=== PATIENT | male | born 1940 | race African-American/Black ===

== ENCOUNTER 2016-07-14 09:00 | Inpatient (IN) | payer MEDICARE ==
[2016-07-13 17:36] LABS: HEMATOCRIT 39.3 % (38.0-50.0); HEMOGLOBIN 13.1 gm/dL (13.0-16.0); MEAN CELL VOLUME 88.5 FL (83-96); MEAN CORPUSCULAR HEMOGLOBIN 29.5 PG (28-34); MEAN CORPUSCULAR HGB CONC 33.3 g/dL (30-36); RED BLOOD COUNT 4.44 X10e (3.90-5.60); RED CELL DISTRIBUTION WIDTH 15.7 % (11.0-15.5); WHITE BLOOD COUNT 4.5 X10e3 (4.0-10.5)
[2016-07-13 18:04] LABS: ALBUMIN SERUM 4.2 g/dL (3.5-5.0); ALKALINE PHOSPHATASE 93 U/L (32-92); ALT (SGPT) 23 U/L (10-40); AST (SGOT) 31 U/L (10-42); BILIRUBIN,TOTAL 1.3 mg/dL (0.2-2.0); BLOOD UREA NITROGEN 14 mg/dL (9-23); BUN/CREATININE RATIO 11.66; CALCIUM SERUM 9.1 mg/dL (8.4-10.2); CARBON DIOXIDE 27 mmol/L (22-31); CHLORIDE 104 mmol/L (100-111); CREATININE SERUM 1.2 mg/dL (0.6-1.4); GLOM FILT RATE Estimated ABOVE60 mL/min (>60); GLUCOSE FASTING 78 mg/dL (70-110); MAGNESIUM 1.8 mg/dL (1.6-3.0); PHOSPHOROUS 3.3 mg/dL (2.5-4.6); POTASSIUM 4.2 mmol/L (3.5-5.1); PROTEIN TOTAL SERUM 8.5 g/dL (6.0-8.3); SODIUM 136 mmol/L (135-145)
--- NOTE | ~2016-07-14 | CT2 ---
[facility] A Service of [facility] & [facility] / [facility] RADIOLOGY TEXT RESULTS PATIENT: TANESHA BOWIE JR LOCATION: A - : 42 UNIT #: [id number] AGE: [address]: Terrell Wright MD SEX: M ORDER DR: [id number] [place] [id number] [facility]. [place], [place] [address] [id number] MR#: [id number] Acc #: [id number] NAME: TANESHA BOWIE JR : 1940 SEX: M STUDY DATE/TIME: 07/13/2016 21:49 UNIT: A ROOM: 217 STUDY DESCRIPTION: CT Abd and Pelv W Cont Attending Physician: Terrell Wright M.D. Ordering Physician: Terrell Wright M.D. Primary Care Physician: Anthony Joseph M.D. MEDICAL IMAGING REPORT This report is preliminary unless electronic signature is present EXAM CT abdomen and pelvis with contrast DATE 07/13/2016 HISTORY Colonoscopy this morning. Tumor found on colonoscopy. Left lower abdominal pain for 2 weeks. Evaluate for metastatic cancer. COMPARISON CT abdomen and pelvis with contrast 05/04/2016. PROCEDURE 5 mm axial images through the abdomen and pelvis after intravenous and enteric contrast administration. This CT exam was performed with one or more of the following radiation dose reduction techniques: Automatic exposure control, adjustment of mA and/or kV according to patient size, and iterative reconstruction. FINDINGS ABDOMEN: What appears to be abnormal soft tissue thickening or mass lesion is seen within the proximal ascending colon, measuring about 3.0 x 3.9 cm in the axial plane. The exact craniocaudal extent cannot be accurately determined, due to the lack of oral contrast opacification more distally in the decompressed state in the remainder of the ascending colon. This is worrisome for potential colonic malignancy. Small pericolonic lymph node medial to this measures 6 mm. No evidence of high-grade large or small bowel obstruction. Diverticular changes are present within the descending and sigmoid colon, but there is no convincing CT evidence of acute diverticulitis at this time. Diverticular changes previously seen within the descending colon, [facility] A Service of [facility] & [facility] / [facility] RADIOLOGY TEXT RESULTS PATIENT: TANESHA BOWIE JR LOCATION: [place] [address]- : 42 UNIT #: [id number] AGE: [address]: Terrell Wright MD SEX: M ORDER DR: 05/04/2016. It resolved in the interval. Lung bases are clear. Heart size is within normal limits. The liver, gallbladder, spleen, pancreas, adrenals, and kidneys are within normal limits. Lung bases are free of consolidation. No aortic aneurysm. PELVIS: There is prostatic enlargement protruding into the urinary bladder with nodular protrusion into urinary bladder base. Prostate gland measures approximately 6.0 cm AP x 6.6 transverse x 7.6 cm craniocaudal. The rectum appears within normal limits. Degenerative changes in the lumbar spine, greatest at L4-5 and L5-S1, left greater than right hip arthropathy. No acute or suspicious osseous abnormalities. IMPRESSION 1. Suspected mass within the proximal ascending colon. Correlate with recent colonoscopy findings. It measures at least 3.9 x 3.9. Craniocaudal extent cannot be determined as the colon at and just distal to this level is not opacified with enteric contrast. 2. 6 mm lymph node adjacent to the proximal ascending colon may represent local viraj disease. 3. There is no evidence of more distant metastatic disease within the abdomen or pelvis. 4. Uncomplicated colonic diverticulosis. 5. Marked prostatic enlargement with nodular protrusion into the urinary bladder. 6. Moderately-advanced degenerative changes in the lumbar spine. No acute or suspicious osseous lesions. Dictated by... Josi Maher M.D. THIS IS AN ELECTRONICALLY VERIFIED REPORT Josi Maher M.D. at 07/14/2016 10:03 AM YANIRA/farzana TD: 07/14/2016 09:32 JOB #: [id number] MEDICAL IMAGING REPORT COPY
--- NOTE | ~2016-07-14 | DS ---
Unit #: [id number] #: [id number] Patient: TANESHA BOWIE JR [id number] [facility] [address] [facility]. [place], [place] [address] [id number] MR#: [id number] NAME: TANESHA BOWIE JR ROOM: 472 Age: 75 Sex: M Admission Date: 07/14/2016 : 1940 Discharge Date: 07/19/2016 Attending Physician: Terrell Wright M.D. Primary Care Physician: Anthony Joseph M.D. DISCHARGE SUMMARY HISTORY AND HOSPITAL COURSE Mr. Bowie is a 75-year-old gentleman who came in the morning of July 13 for colonoscopy. He was found to have a mass in the ascending colon that was not amenable to endoscopic resection. 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 The lesion was tattooed and he was transferred to [facility] for definitive surgery. He was taken to the operating room where he underwent a right hemicolectomy without incident. He was admitted to the hospital postoperatively and postoperatively had a generally unremarkable course. He is afebrile with stable vital signs throughout. Laboratories are generally unremarkable. Once we had return of bowel function he was quickly advanced to a regular diet. Patient is having normal bowel function. He is ambulating without difficulty. Final pathology confirmed there was no invasive malignancy but he did have high grade dysplasia. Today the patient will be discharged home in stable condition with instructions to undergo a diet as tolerated. He may ambulate ad reginald, but do no heavy lifting more than 15 pounds or any strenuous pushing, pulling or other activity. He may shower but not submerge his wound under water. Use laxative as needed. He is to call for a follow up office appointment in 10-14 days. Prescription for Hydrocodone 7.5 mg tablets was left. Med rec conciliation sheet was completed. Patient understood these instructions and will be discharged home in stable condition. Dictated by... Terrell Wright M.D. Dorothy TD: 07/20/2016 11:44 JOB #: [id number] DISCHARGE SUMMARY X Terrell Wright MD DISCHARGE SUMMARY
--- NOTE | ~2016-07-14 | OR ---
Unit #: [id number] #: [id number] Patient: TANESHA BOWIE JR [id number] [address] [place], [place] [address] [id number] I MR#: [id number] NAME: TANESHA BOWIE JR ROOM: 472 Date of Procedure: 07/14/2016 Admission Date: 07/14/2016 Surgeon: Terrell Wright M.D. : 1940 Attending Physician: Terrell Wright M.D. Primary Care Physician: Anthony Joseph M.D. OPERATIVE REPORT PREOPERATIVE DIAGNOSIS Ascending colon mass. POSTOPERATIVE DIAGNOSIS Ascending colon mass. PROCEDURES PERFORMED Exploratory laparotomy and right hemicolectomy. ANESTHESIA General endotracheal anesthesia. ESTIMATED BLOOD LOSS 30 mL. INDICATIONS FOR PROCEDURE A 75-year-old gentleman, who was found to have a mass in the ascending colon on colonoscopy. DESCRIPTION OF PROCEDURE The patient was transported from his hospital room to the operating room, and after induction of general endotracheal anesthesia, SCDs and Bella catheter were placed. Bella catheter required a Coude catheter due to benign prostatic hypertrophy. Urine was clear. After being prepped and draped in usual sterile fashion, he received IV antibiotics per SCIP protocol. The midline incision was made. We entered into the peritoneal cavity through the linea alba and identified the cecum, and the cecum and terminal ileum were mobilized and then the ascending colon was mobilized along the peritoneal reflection. The hepatic flexure was mobilized and then the terminal ileum was divided with a 75 mm NIR stapler. The proximal transverse colon was divided with a NIR stapler and then the mesentery was sequentially clamped, divided, and ligated. The specimen was removed, and then the antimesenteric border of the terminal ileum was secured to the anterior tenia of the transverse colon. Enterotomy and colotomy were made and a full length of the 75 mm NIR stapler was used to create a functional end-to-end and [id number] stapled anastomosis. The open end of the anastomosis was closed with Allis clamps and then stapled shut with a TA 60 stapler. The staple line was oversewn with 3-0 silk suture and the mesenteric defect was closed with 3-0 silk suture. Omentum was placed over the anastomosis and tacked down with 3-0 silk suture. Rest of the exploratory laparotomy was unremarkable. We irrigated and obtained hemostasis. Sponge, instrument, and needle counts were correct. Unit #: [id number] #: [id number] Patient: TANESHA BOWIE JR The fascia was closed with #1 looped PDS suture. The soft tissue was irrigated with saline followed by Betadine. The skin was closed with sterile skin angus. A sterile island dressing was placed as wound dressing. Sponges and needle counts were correct x3. The patient tolerated the procedure well and was transported to the recovery in stable condition. He will be readmitted to the hospital postoperatively and the findings and postoperative expectations were discussed with his . Dictated by... Shruthi Keene/loni TD: 07/15/2016 14:12 JOB #: [id number] OPERATIVE REPORT X Terrell Wright MD X PROCEDURE OPERATIVE NOTE
--- NOTE | ~2016-07-14 | EKG ---
PATIENT: TANESHA BOWIE UNIT #: [id number] Ventricular Rate: 58 BPM Atrial Rate: 58 BPM P-R Interval: 182 ms QRS Duration: 96 ms Q-T Interval: 400 ms QTC Calculation(Bezet): 392 ms P Tracy: 69 degrees Calculated R Tracy: 23 degrees Calculated T Tracy: 41 degrees Diagnosis Line: Sinus bradycardia Diagnosis Line: Minimal voltage criteria for LVH, may be normal Diagnosis Line: variant Diagnosis Line: Borderline ECG Diagnosis Line: No previous ECGs available Diagnosis Line: Confirmed by ИРИНА COLON MD ([id number]) on 07/14/2016 Diagnosis Line: 6:12:24 PM INTERPRETING MD: ISAIAH GOMES
[2016-07-14 06:27] LABS: HEMATOCRIT 36.7 % (38.0-50.0); HEMOGLOBIN 12.2 gm/dL (13.0-16.0); MEAN CELL VOLUME 88.6 FL (83-96); MEAN CORPUSCULAR HEMOGLOBIN 29.4 PG (28-34); MEAN CORPUSCULAR HGB CONC 33.1 g/dL (30-36); MEAN PLATELET VOLUME 8.5 FL (6.5-11.5); RED BLOOD COUNT 4.14 X10e (3.90-5.60); RED CELL DISTRIBUTION WIDTH 15.7 % (11.0-15.5); WHITE BLOOD COUNT 4.4 X10e3 (4.0-10.5)
[2016-07-14 06:57] LABS: BLOOD UREA NITROGEN 11 mg/dL (9-23); BUN/CREATININE RATIO 8.46; CARBON DIOXIDE 25 mmol/L (22-31); CHLORIDE 102 mmol/L (100-111); CREATININE SERUM 1.3 mg/dL (0.6-1.4); GLOM FILT RATE Estimated ABOVE60 mL/min (>60); GLUCOSE FASTING 102 mg/dL (70-110); SODIUM 136 mmol/L (135-145)
[~2016-07-14 09:00] MED LIST: ALFUZOSIN HCL10 MG PO
[2016-07-15 04:05] LABS: HEMATOCRIT 38.9 % (38.0-50.0); HEMOGLOBIN 12.8 gm/dL (13.0-16.0); MEAN CELL VOLUME 89.2 FL (83-96); MEAN CORPUSCULAR HEMOGLOBIN 29.4 PG (28-34); MEAN PLATELET VOLUME 8.2 FL (6.5-11.5); RED BLOOD COUNT 4.36 X10e (3.90-5.60); RED CELL DISTRIBUTION WIDTH 15.5 % (11.0-15.5)
[2016-07-15 04:06] LABS: WHITE BLOOD COUNT 7.2 X10e3 (4.0-10.5)
[2016-07-15 04:31] LABS: BLOOD UREA NITROGEN 9 mg/dL (9-23); BUN/CREATININE RATIO 6.42; CALCIUM SERUM 8.6 mg/dL (8.4-10.2); CARBON DIOXIDE 23 mmol/L (22-31); CHLORIDE 100 mmol/L (100-111); CREATININE SERUM 1.4 mg/dL (0.6-1.4); GLOM FILT RATE Estimated ABOVE60 mL/min (>60); GLUCOSE FASTING 226 mg/dL (70-110); MAGNESIUM 1.5 mg/dL (1.6-3.0); PHOSPHOROUS 2.3 mg/dL (2.5-4.6); POTASSIUM 4.6 mmol/L (3.5-5.1); SODIUM 132 mmol/L (135-145)
[2016-07-16 03:54] LABS: BUN/CREATININE RATIO 9.41; CALCIUM SERUM 8.3 mg/dL (8.4-10.2); CREATININE SERUM 1.7 mg/dL (0.6-1.4); GLOM FILT RATE Estimated 51.1 mL/min (>60); PHOSPHOROUS 2.9 mg/dL (2.5-4.6); POTASSIUM 4.1 mmol/L (3.5-5.1)
[2016-07-17 03:47] LABS: BASOPHIL% 0.1 % (0-2.5); DIFF IND NO; HEMATOCRIT 30.7 % (38.0-50.0); HEMOGLOBIN 10.4 gm/dL (13.0-16.0); LYMPHOCYTE# 0.7 X10e3 (1.0-3.5); LYMPHOCYTE% 9.6 % (17.0-45.0); MEAN CELL VOLUME 87.3 FL (83-96); MEAN CORPUSCULAR HEMOGLOBIN 29.4 PG (28-34); MEAN CORPUSCULAR HGB CONC 33.7 g/dL (30-36); MEAN PLATELET VOLUME 8.6 FL (6.5-11.5); MONOCYTE% 13.7 % (3.0-12.0); NEUTROPHIL# 5.7 X10e3 (1.5-7.1); NEUTROPHIL% 76.6 % (40-75); PLATELET COUNT 138 X10e3 (140-420); RED BLOOD COUNT 3.52 X10e (3.90-5.60); RED CELL DISTRIBUTION WIDTH 15.5 % (11.0-15.5); WHITE BLOOD COUNT 7.4 X10e3 (4.0-10.5)
[2016-07-17 04:12] LABS: BUN/CREATININE RATIO 11.76; CALCIUM SERUM 7.1 mg/dL (8.4-10.2); CREATININE SERUM 1.7 mg/dL (0.6-1.4); GLOM FILT RATE Estimated 51.1 mL/min (>60); POTASSIUM 4.1 mmol/L (3.5-5.1)
[2016-07-18 03:08] LABS: BUN/CREATININE RATIO 12.94; CALCIUM SERUM 8.2 mg/dL (8.4-10.2); CREATININE SERUM 1.7 mg/dL (0.6-1.4); GLOM FILT RATE Estimated 51.1 mL/min (>60); POTASSIUM 4.1 mmol/L (3.5-5.1)
[2016-07-19] MEDS ORDERED: HYDROCODON-ACE1 EAC9 PO (07:46)
== END 2016-07-19 09:52 | disposition home or self-care (01) | DRG 330 ==
LOC: C2A 09:00 → C4C 19:02
PROVIDERS: Specialist
PROC: 0DTF0ZZ Resection of Right Large Intestine, Open Approach (ICD-10-PCS; principal; 2016-07-14 16:00)
DX: D12.2 Benign neoplasm of ascending colon (principal); E87.1 Hypo-osmolality and hyponatremia; K57.30 Diverticulosis of large intestine without perforation or abscess without bleeding; R79.89 Other specified abnormal findings of blood chemistry
CPT/HCPCS: 74177; 80048; 80053; 82947; 83735; 84100; 85025; 85027; 86850; 86900; 86901; 88309; 93005; 94010; 94760; J0131; J0360; J1100; J1170; J1650; J2270; J2405; J2710; J2765; J3010; J3475; J3490; Q9967